=== PATIENT | male | born 1940 | race Caucasian/White ===

== ENCOUNTER 2023-06-05 13:49 | Outpatient (RCR) | payer MEDICARE, SELFPAY | END 2023-06-05 23:59 | disposition home or self-care (01) | LOC: ROT 13:49 | PROVIDERS: ATTENDING PHYSICIAN Nurse Practitioner Adult Health; FAMILY PHYSICIAN Internal Medicine | DX: R41.841 Cognitive communication deficit (principal); R41.89 Other symptoms and signs involving cognitive functions and awareness; R29.6 Repeated falls; R13.13 Dysphagia, pharyngeal phase; R29.818 Other symptoms and signs involving the nervous system | CPT/HCPCS: 92526; 92610; 97110; 97129; 97130; 97530; 97535 ==

== ENCOUNTER 2023-06-19 13:30 | Outpatient (RCR) | payer MEDICARE, SELFPAY | END 2023-06-20 12:04 | disposition home or self-care (01) | LOC: ROT 13:30 | PROVIDERS: ATTENDING PHYSICIAN Nurse Practitioner Adult Health; FAMILY PHYSICIAN Internal Medicine | DX: R25.1 Tremor, unspecified (principal); R29.818 Other symptoms and signs involving the nervous system; R41.89 Other symptoms and signs involving cognitive functions and awareness; R13.10 Dysphagia, unspecified; R13.13 Dysphagia, pharyngeal phase; R41.841 Cognitive communication deficit; R29.6 Repeated falls | CPT/HCPCS: 92526; 97110; 97129; 97130; 97530; 97535 ==

== ENCOUNTER 2023-10-25 11:26 | Emergency (ER) | payer MEDICARE, SELFPAY ==
[2023-10-25 11:32] VITALS: BP 128/70
[2023-10-25 12:38] VITALS: BMI 27.9
[2023-10-25 12:39] VITALS: BP 149/77
--- NOTE | 2023-10-25 12:46 | ED.GENMED ---
History of Present Illness
General
Chief Complaint: Chest Pain
Time Seen by Provider: 10/25/23 12:03
History of Present Illness
History of Present Illness:
82-year-old male presents the emergency department for evaluation of intermittent chest pain for the past 3 to 4 weeks. Pain seems to be random in nature, occasionally pleuritic but not clearly positional. Denies any exertional pain. The pain
seems to vary from the left chest to the left lower quadrant and the left upper quadrant. No obvious provoking or palliating factors. No fevers or chills. Denies any coughing.
Past History
Past History
ED Past Medical History: HTN, Hypercholesterolemia, Psychiatric (Major depression) and Other (Restless leg, essential tremor)
ED Past Surgical History: Tonsilectomy and Other (UP3 surgery)
Social History
Tobacco: Non-smoker
Alcohol: Occasional
Drug: None
Personal:
Living: with family
Employment: Retired
Family History
Family History: Other (Reviewed and Noncontributory)
Review of Systems
Review of Systems
Allergies reviewed?: Yes
All Other Systems: ROS reviewed and negative except as documented in HPI and ROS
Phy Exam
Physical Exam
Physical Exam:
GEN: Well appearing, NAD, WDWN
Eyes: PERRLA, EOMs intact, no scleral icterus
HENT: NCAT, oral mucosa moist
Lungs: CTAB, no wheezes, rales, rhonchi, normal chest wall excursion
Cardiac: RRR, no M/R/G, no peripheral edema. Radial pulses 2+ bilat
Abdomen: S, NT, ND, NABS, no masses or hepatosplenomegaly
Neuro: AO x 3
MSK: No gross deformity or ecchymosis. No edema. No digital clubbing
Skin: No rashes, petechiae. Normal color, no pallor or jaundice.
Psych: Calm, cooperative, proper hygiene
Scores
Heart Score for Chest Pain Patients
STEMI patient?: No
History: Slightly or Non-Suspicious
ECG: Normal
Age: >/= 65 years
Risk Factors: 1 or 2 Risk Factors
Troponin: </= Normal Limit
Heart Score for Chest Pain Patients: 3
Heart Score Risk: 2.5% MACE over next 6 weeks
Course
Orders/Labs/Results
Orders:
Orders
10/25/23 11:31
EKG [Electrocardiogram (*1)] Urgent
Reason for Study: Chest Pain
EKG- Treatment ONCE
10/25/23 12:38
Cardiac Monitoring- Treatment ONCE
IV Insert/Care/Rem.- Treatment PRN
O2 Therapy [RESP] Urgent
Titrate/Wean O2 to maintain O2 sat greater than (%): 93
Special Instructions: TO MAINTAIN CONTINUOUS O2 SATS >/= 93%
Pulse Ox/cont/shift [RESP] Urgent
Quantity: 1
Special Instructions: continuous pulse ox
10/25/23 12:40
Complete Blood Count/With Diff Urgent
Comprehensive Metabolic Panel Urgent
NT-proBNP Urgent
Troponin I Urgent
10/25/23 13:52
CT Abd/Pel (IV only)-DH only Urgent
Comment:
Reason For Exam: LUQ pain
10/25/23 15:01
CR Chest - 2 Views Urgent
Comment:
Reason For Exam: LLL abnormality on CT
Abnormal Lab Results
10/25/23
12:40
RBC 3.99 L 10^6/uL
(4.70-6.10)
Hgb 11.3 L g/dL
(13.0-18.0)
Hct 34.1 L %
(39.0-52.0)
Absolute Monos (auto) 0.7 H 10^3/uL
(0.1-0.6)
Monocytes % 12.6 H %
(1.7-9.3)
BUN 21 H mg/dl
(9-20)
10/25/23 12:40
10/25/23 12:40
Vital Signs
Initial and Last Documented VS:
Initial Vital Signs
Temp Pulse Resp BP Pulse Ox
98.3 F 72 16 128/70 98
10/25/23 11:32 10/25/23 11:32 10/25/23 11:32 10/25/23 11:32 10/25/23 11:32
Last Documented Vital Signs
Temp Pulse Resp BP Pulse Ox
98.3 F 70 24 124/85 96
10/25/23 11:32 10/25/23 14:15 10/25/23 14:15 10/25/23 14:02 10/25/23 14:15
MDM/Problems Addressed
MDM/Problems Addressed:
Patient's labs are markable. The variable nature to the symptoms without clear provoking or palliating factors is reassuring against acute coronary syndrome. CT of the abdomen pelvis was obtained due to the patient's reported pain radiating into
the abdomen, abdominal films were unremarkable however the lower chest did suggest a small pleural effusion with left lower lobe infiltrate. Although the patient has no strong infectious symptoms we will treat this as a potential pneumonia. Doubt
pulmonary embolism given that there is no consistent pleuritic nature. Recommend outpatient follow-up for repeat x-ray in 4 to 6 weeks
Comment
Comment:
EKG independently interpreted by me shows normal sinus rhythm at a rate of 69 with left bundle branch block, QTc of 503, comparable to past EKG
*Critical Care Note
Total Time (30-74mins, 75-104mins- exclusive of procedures): Not Applicable
ED Attending Note
-
Portions of this chart may have been created with voice recognition software.� Occasional wrong word or��sound alike� substitutions may have occurred due to the inherent limitations of voice recognition software.
Discharge Plan
Departure
Patient Disposition: Home (Routine Discharge)
Date of Disposition: 10/25/23
Time of Disposition: 16:35
Patient with high blood pressure during this ER visit?: No
Discharge Problem:
Pleural effusion on left, Left lower lobe pulmonary infiltrate
Instructions: Pleural effusion
Prescriptions:
New
amoxicillin 500 mg capsule
2,000 mg PO Q12H 5 Days Qty: 40 0RF
No Action
pramipexole 1 mg tablet
1 mg PO DAILY
atorvastatin [Lipitor] 10 mg Tablet
10 mg PO QPM
atenolol 25 mg Tablet
25 mg PO DAILY
finasteride 5 mg Tablet
5 mg PO DAILY
bupropion HCl [Wellbutrin XL] 300 mg Tablet Extended Release 24 Hr
300 mg PO DAILY
duloxetine [Cymbalta] 30 mg Capsule,Delayed Release(Dr/Ec)
30 mg PO BID
pramipexole 1 mg Tablet
2 mg PO HS
cetirizine [Zyrtec] 10 mg Tablet
10 mg PO HS
cyanocobalamin (vitamin B-12) 1,000 mcg Tablet
1,000 mcg PO DAILY Qty: 0 0RF
tamsulosin 0.4 mg Capsule
0.4 mg PO DAILY Qty: 0 0RF
[place] Saline Gel
1 applic intranasal Q2HPRN PRN (Reason: nasal congestion) Qty: 14.1 0RF
thiamine HCl (vitamin B1) 100 mg Tablet
100 mg PO DAILY Qty: 0 0RF
Referrals:
Saurabh Poon MD [Family Provider] -
Activity Restrictions/Additional Instructions:
Follow-up with your primary doctor in 4 to 6 weeks for repeat chest x-ray
Interventions
Interventions:
*General Assessment Last Done: 10/25/23 12:39
ED- Fall Risk Assessment Last Done: 10/25/23 12:43
*ED COVID-19 Vaccine History Last Done: 10/25/23 11:32
*Nursing Disposition Last Done: 10/25/23 16:56
ED- Cardiac Assessment Last Done: 10/25/23 12:42
Discharge Date and Time
Discharge Date/Time: 10/25/23 16:56
Print Language: PASHTO
[2023-10-25 13:00] VITALS: BP 153/84
[2023-10-25 13:02] LABS: % Basophils 1.2 % (0-2); % Eosinophils 2.3 % (0-6); % Immature Granulocytes 0.2 % (0-0.5); % Lymphocytes 31.6 % (20.5-51.1); % Monocytes 12.6 % (1.7-9.3); % Neutrophils 52.1 % (42.2-75.2); Absolute Basophils 0.1 10^3/uL (0-0.2); Absolute Eosinophils 0.1 10^3/uL (0-0.7); Absolute Lymphocytes 1.8 10^3/uL (1.2-3.4); Absolute Monocytes 0.7 10^3/uL (0.1-0.6); Hematocrit 34.1 % (39.0-52.0); Hemoglobin 11.3 g/dL (13.0-18.0); Mean Corp Hgb Conc. 33.1 g/dL (33.0-37.0); Mean Corpuscular Hgb 28.3 pg (27.0-31.0); Mean Corpuscular Volume 85.5 fL (80.0-94.0); Mean Platelet Volume 9.9 fL (7.4-10.4); Nucleated Red Blood Cells % 0 % (-); Platelet Count 254 10^3/uL (130-400); Red Blood Cell Count 3.99 10^6/uL (4.70-6.10); Red Cell Dist. Width 12.5 % (11.5-14.5); White Blood Cell Count 5.7 10^3/uL (4.8-10.8)
[2023-10-25 13:18] LABS: ALT (SGPT) 17 U/L (0-50); AST (SGOT) 29 U/L (17-59); Albumin 3.7 g/dl (3.5-5.0); Alkaline Phosphatase 90 U/L (38-126); Blood Urea Nitrogen 21 mg/dl (9-20); Calcium 9.1 mg/dl (8.4-10.2); Carbon Dioxide 28 mmol/L (22-30); Chloride 103 mmol/L (98-107); Estimated Creatinine Clearance 70 ml/min; Glucose 91 mg/dl (70-99); Potassium 4.4 mmol/L (3.5-5.1); Sodium 136 mmol/L (135-145); Total Bilirubin 0.8 mg/dl (0.2-1.3); Total Protein 6.7 g/dl (6.3-8.2); eGFR > 60.00
[2023-10-25 13:28] LABS: NT-proBNP 629 pg/ml; Troponin I < 0.012 ng/ml
[2023-10-25 14:02] VITALS: BP 124/85
== END 2023-10-25 16:56 | disposition home or self-care (01) ==
LOC: EMR 11:26
PROVIDERS: Physician Assistant; EMERGENCY PHYSICIAN Emergency Medicine; FAMILY PHYSICIAN Internal Medicine
DX: J90 Pleural effusion, not elsewhere classified (principal); R91.8 Other nonspecific abnormal finding of lung field; R07.89 Other chest pain; R10.12 Left upper quadrant pain; I10 Essential (primary) hypertension; E78.00 Pure hypercholesterolemia, unspecified; F32.9 Major depressive disorder, single episode, unspecified; G25.81 Restless legs syndrome; G25.0 Essential tremor
CPT/HCPCS: 99284; 71046; 74177; 80053; 83880; 84484; 85025; 93005; Q9967

== ENCOUNTER → 2023-11-03 08:23 | Outpatient (REF) | payer MEDICARE, SELFPAY | LOC: RAD 08:23 | PROVIDERS: ATTENDING PHYSICIAN Internal Medicine | DX: R91.8 Other nonspecific abnormal finding of lung field (principal) | CPT/HCPCS: 71250 ==